=== PATIENT | female | born 1955 ===

== ENCOUNTER 2025-10-06 06:13 | Day surgery (SDC) | payer MEDICARE, SELFPAY ==
[2025-10-06] VITALS (9 sets, daily range): BP systolic 102–178; BP diastolic 56–102; BMI 27.2
[2025-10-06 09:59] LABS: Glucose - Point of Care 137 mg/dl (70-99)
[2025-10-06] MEDS: NORMOSOL-R/PLASMALYTE-A 1000 IV (09:59)
[2025-10-06] MEDS: TYLENOL 1000 MG PO (10:00)
[2025-10-06 12:19] LABS: Glucose - Point of Care 101 mg/dl (70-99)
[2025-10-06] MEDS: DILAUDID 0.25 MG IV (13:48)
[2025-10-06 13:50] LABS: Glucose - Point of Care 107 mg/dl (70-99)
--- NOTE | 2025-10-06 14:06 | W.IMMPOSTOP ---
Surgical Immed Post Op Note
-
Primary Surgeon: Noe Chadwick MD
Assisting Surgeon:
Pre-op Diagnosis: right knee medial meniscus tear, osteoarthritis
Post-op Diagnosis: right knee medial meniscus tear, osteoarthritis
Procedure Performed: arthroscopic right knee partial medial meniscectomy
Anesthesia Type: general
Specimen / Cultures: none
Estimated Blood Loss: 1mL
Complications: none apparent
Operative Findings: degenerative medial meniscus tear of body, posterior horn, root; grade 4 chondrosis of patella, medial femoral condyle, medial tibial plateau
Tourniquet time: 31 minutes @ 250 mmHg
Operative dictation #: [id number]
[2025-10-06] MEDS: TORADOL 15 MG IV (14:27)
== END 2025-10-06 15:47 | disposition home or self-care (01) ==
LOC: SDS 06:13
PROVIDERS: ATTENDING PHYSICIAN Student in an Organized Health Care Education/Training Program
DX: M23.231 Derangement of other medial meniscus due to old tear or injury, right knee (principal); M17.11 Unilateral primary osteoarthritis, right knee; M22.42 Chondromalacia patellae, left knee
CPT/HCPCS: 29881; 82962